=== PATIENT | male | born 1960 | race Caucasian/White ===

== ENCOUNTER 2016-12-01 12:14 | Emergency (ER) | payer BC ==
[2016-12-01 14:33] LABS: HEMOGLOBIN 15.7 gm/dl (14.0-17.5); RED BLOOD COUNT 5.24 M/UL (4.20-5.50); WHITE BLOOD COUNT 8.9 K/UL (4.5-11.0)
[2016-12-01 14:56] LABS: BUN/CREATININE RATIO 17 (0-10)
== END 2016-12-01 18:19 | disposition home or self-care (01) ==
LOC: ER1 12:14
PROVIDERS: Emergency Medicine
DX: J45.909 Unspecified asthma, uncomplicated (principal); J40 Bronchitis, not specified as acute or chronic; Z87.891 Personal history of nicotine dependence
CPT/HCPCS: 36415; 71020; 80053; 82550; 82553; 83874; 83880; 84484; 85025; 85379; 85610; 85730; 93005; 94664; 96374; 99283; J2920